=== PATIENT | female | born 1965 | race African-American/Black ===

== ENCOUNTER 2019-01-01 12:17 | Inpatient (IN) | payer OTHER ==
--- NOTE | 2019-01-01 13:05 | EKG REPORT ---
SEVERITY:- BORDERLINE ECG - SINUS RHYTHM LEFT AXIS DEVIATION BORDERLINE T ABNORMALITIES, ANTERIOR LEADS : Confirmed by: Guillermo Lorenzo MD 01-Jan-2019 13:04:53
[2019-01-01] MEDS ORDERED: ASPIRIN 81 MG TABLET, CHEWABLE PO ONE (13:43)
[2019-01-01] MEDS ORDERED: DIPHENHYDRAMINE HCL 50 MG/ML VIAL IV ONE (13:44)
[2019-01-01] MEDS ORDERED: METOCLOPRAMIDE HCL INJ/PF 10 MG/2 ML SDV IV ONE (13:44)
--- NOTE | 2019-01-01 13:46 | ER Document Report ---
ED Medical Screen (RME) - General Chief Complaint: Chest Pain Stated Complaint: CHEST PAIN Time Seen by Provider: 01/01/19 13:43 Mode of Arrival: Ambulatory Information source: Patient, [facility], [facility] Records Notes: 53-year-old female with coronary artery disease, hypertension, hyperlipidemia, IBS presents with complaint of chest pain and headache. Patient reports that she has had chronic chest pain for years but over the last 3 days it has changed and is now described as a pulling instead of a dull ache. Patient also describes a headache with associated nausea and lightheadedness. I have greeted and performed a rapid initial assessment of this patient. A comprehensive ED assessment and evaluation of the patient, analysis of test results and completion of medical decision making process we will be contacted by additional ED providers. PHYSICAL EXAMINATION: Vital signs reviewed-within normal limits GENERAL: Well-appearing, well-nourished and in no acute distress. LUNGS: No respiratory distress Musculoskeletal: Normal range of motion NEUROLOGICAL: Normal speech, normal gait. PSYCH: Normal mood, normal affect. SKIN: Warm, Dry, normal turgor, no rashes or lesions noted. TRAVEL OUTSIDE OF THE [place] IN LAST 30 DAYS: No - HPI Onset: Last week Onset/Duration: Gradual, Persistent, Worse Quality of pain: Achy, Throbbing, Other - Pulling Severity: Moderate Pain Level: 2 Associated Symptoms: Chest pain, Headache Exacerbated by: Denies Relieved by: Denies Similar symptoms previously: Yes Recently seen / treated by doctor: Yes - Related Data Smoking: Non-smoker Frequency of alcohol use: None Drug Abuse: None Allergies/Adverse Reactions: No Known Allergies Allergy (Verified 01/01/19 12:18) Past Medical History - Social History Frequency of alcohol use: Occasional Drug Abuse: None - Past Medical History Cardiac Medical History: Reports: Hx Heart Attack - 11/2015, Hx Hypercholesterolemia, Hx Hypertension Neurological Medical History: Reports: Hx Migraine Renal/ Medical History: Denies: Hx Peritoneal Dialysis Past Surgical History: Reports: Hx Abdominal Surgery - "gorwth" removed, Hx Cardiac Surgery - stent 11/2015 Physical Exam - Vital signs Vitals: Temp Pulse Resp BP Pulse Ox 98.8 F 73 16 113/67 98 01/01/19 12:34 01/01/19 12:34 01/01/19 12:34 01/01/19 12:34 02/20/19 12:34 Course - Vital Signs Vital signs: Temp Pulse Resp BP Pulse Ox 98.8 F 73 16 113/67 98 01/01/19 12:34 01/01/19 12:34 01/01/19 12:34 01/01/19 12:34 01/01/19 12:34
--- NOTE | 2019-01-01 14:30 | RADIOLOGY REPORT (SQ) ---
EXAM DESCRIPTION: CT HEAD WITHOUT COMPLETED DATE/TIME: 01/01/2019 2:22 pm REASON FOR STUDY: Worsening headache COMPARISON: None. TECHNIQUE: Axial images acquired through the brain without intravenous contrast. Images reviewed wi th bone, brain and subdural windows. Additional sagittal and coronal reconstructions were generated. Images stored on PACS. All CT scanners at this facility use dose modulation, iterative reconstruction, and/or weight based d osing when appropriate to reduce radiation dose to as low as reasonably achievable (ALARA). [facility]: Dose Right [facility]: CareDose [facility]: Dose Right [facility]: Teradose 4D [facility]: Active Circle RADIATION DOSE: CT Rad equipment meets quality standard of care and radiation dose reduction techniq ues were employed. CTDIvol: 53.2 mGy. DLP: 1017 mGy-cm. mGy. LIMITATIONS: None. FINDINGS: VENTRICLES: Normal size and contour. CEREBRUM: No masses. No hemorrhage. No midline shift. No evidence for acute infarction. Normal gra y/white matter differentiation. No areas of low density in the white matter. CEREBELLUM: No masses. No hemorrhage. No alteration of density. No evidence for acute infarction. EXTRAAXIAL SPACES: Large falcine calcification. No fluid collections. No masses. ORBITS AND GLOBE: No intra- or extraconal masses. Normal contour of globe without masses. CALVARIUM: No fracture. PARANASAL SINUSES: No fluid or mucosal thickening. SOFT TISSUES: No mass or hematoma. OTHER: No other significant finding. IMPRESSION: No acute abnormality in brain. EVIDENCE OF ACUTE STROKE: NO. COMMENT: Quality ID # [id number]: Final reports with documentation of one or more dose reduction techniques (e.g., Automated exposure control, adjustment of the mA and/or kV according to patient size, use of iterative reconstruction technique) TECHNICAL DOCUMENTATION: JOB ID: [id number] [employer]- All Rights Reserved Reading location - IP/workstation name: [email or web address]
--- NOTE | 2019-01-01 14:47 | RADIOLOGY REPORT (SQ) ---
EXAM DESCRIPTION: CHEST 2 VIEWS COMPLETED DATE/TIME: 01/01/2019 2:32 pm REASON FOR STUDY: Chest pain COMPARISON: None. EXAM PARAMETERS: NUMBER OF VIEWS: two views TECHNIQUE: Digital Frontal and Lateral radiographic views of the chest acquired. RADIATION DOSE: NA LIMITATIONS: none FINDINGS: LUNGS AND PLEURA: Near subsegmental atelectasis or scar in the left mid-lower lung zones. The right lung is clear. No pneumothorax or pleural effusion. MEDIASTINUM AND HILAR STRUCTURES: No masses or contour abnormalities. HEART AND VASCULAR STRUCTURES: Heart normal size. No evidence for failure. BONES: No acute findings. HARDWARE: None in the chest. OTHER: No other significant finding. IMPRESSION: 1. Linear subsegmental atelectasis or scar in the left mid-lower lung zones. No acute pulmonary consolidation. TECHNICAL DOCUMENTATION: JOB ID: [id number] [employer]- All Rights Reserved Reading location - IP/workstation name: [email or web address]
[2019-01-01 15:13] LABS: ABSOLUTE EOSINOPHILS # (AUTO) 0.2 10^3/uL (0.0-0.6); ABSOLUTE LYMPHOCYTES (AUTO) 3.5 10^3/uL (0.5-4.7); ABSOLUTE MONOCYTES (AUTO) 0.5 10^3/uL (0.1-1.4); BASOPHILS % (AUTO) 0.4 % (0-2); EOSINOPHILS % (AUTO) 2.5 % (0-6); HEMATOCRIT 39.8 % (36.0-47.0); HEMOGLOBIN 13.6 g/dL (12.0-15.5); LYMPHOCYTES % (AUTO) 48.7 % (13-45); MEAN CORPUSCULAR HGB CONC 34.3 g/dL (32.0-36.0); MEAN CORPUSCULAR VOLUME 91 fl (80-97); MONOCYTES % (AUTO) 7.2 % (3-13); PLATELET COUNT 329 10^3/uL (150-450); RED BLOOD COUNT 4.39 10^6/uL (3.72-5.28); RED CELL DISTRIBUTION WIDTH 14.2 % (11.5-14.0); SEGMENTED NEUTROPHILS % (AUTO) 41.2 % (42-78); TOTAL CELLS COUNTED % (AUTO) 100 %; WHITE BLOOD COUNT 7.3 10^3/uL (4.0-10.5)
[2019-01-01 15:55] LABS: ALANINE AMINOTRANSFERASE 32 U/L (9-52); ALKALINE PHOSPHATASE 142 U/L (38-126); ANION GAP 10 (5-19); ASPARTATE AMINO TRANSFERASE 33 U/L (14-36); BILIRUBIN,DIRECT 0.3 mg/dL (0.0-0.4); BILIRUBIN,TOTAL 0.3 mg/dL (0.2-1.3); BLOOD UREA NITROGEN 13 mg/dL (7-20); CALCIUM 9.2 mg/dL (8.4-10.2); CARBON DIOXIDE 28 mmol/L (22-30); CHLORIDE 103 mmol/L (98-107); CREATINE KINASE 97 U/L (30-135); GLUCOSE 90 mg/dL (75-110); POTASSIUM 4.3 mmol/L (3.6-5.0); SODIUM 141.1 mmol/L (137-145); TOTAL PROTEIN 7.2 g/dL (6.3-8.2)
--- NOTE | 2019-01-01 16:08 | ER Document Report ---
ED General - General Chief Complaint: Chest Pain Stated Complaint: CHEST PAIN Time Seen by Provider: 01/01/19 13:43 Primary Care Provider: DELORES,CUCA [Primary Care Provider] - Follow up as needed Mode of Arrival: Ambulatory Notes: 53-year-old female with coronary artery disease, AMI status post stent in 2016, hypertension, hyperlipidemia, IBS presents with complaint of chest pain and headache. Patient denies shortness of breath. Patient denies vomiting or abdominal pain. Patient denies any numbness or paresthesias in any of her extremities. Patient denies any unilateral weakness. She states she has felt disoriented over the last couple of days. Patient reports that she has had chr onic chest pain for years but over the last 3 days it has changed and is now described as a pulling instead of a dull ache. Patient also describes a headache with associated nausea and lightheadedness. TRAVEL OUTSIDE OF THE [place] IN LAST 30 DAYS: No - Related Data Allergies/Adverse Reactions: No Known Allergies Allergy (Verified 01/01/19 12:18) Past Medical History - General Information source: [facility], [facility] - Social History Smoking Status: Current Every Day Smoker Frequency of alcohol use: Occasional Drug Abuse: None Family History: Reviewed & Not Pertinent Patient has suicidal ideation: No Patient has homicidal ideation: No - Past Medical History Cardiac Medical History: Reports: Hx Heart Attack - 11/2015, Hx Hypercholesterolemia, Hx Hypertension Neurological Medical History: Reports: Hx Migraine Renal/ Medical History: Denies: Hx Peritoneal Dialysis Past Surgical History: Reports: Hx Abdominal Surgery - "gorwth" removed, Hx Cardiac Surgery - stent 11/2015 Review of Systems - Review of Systems Constitutional: See HPI EENT: No symptoms reported Cardiovascular: See HPI Respiratory: See HPI Gastrointestinal: See HPI Genitourinary: See HPI Female Genitourinary: No symptoms reported Musculoskeletal: No symptoms reported Skin: No symptoms reported Hematologic/Lymphatic: No symptoms reported Neurological/Psychological: See HPI Physical Exam - Vital signs Vitals: Temp Pulse Resp BP Pulse Ox 98.8 F 73 16 113/67 98 01/01/19 12:34 01/01/19 12:34 01/01/19 12:34 01/01/19 12:34 01/01/19 12:34 - Notes Notes: PHYSICAL EXAMINATION: Reviewed vital signs and charting by RN GENERAL: Alert, interacts well. No acute distress. HEAD: Normocephalic, atraumatic. EYES: Pupils equal, round, and reactive to light. Extraocular movements intact. ENT: Oral mucosa moist, tongue midline. NECK: Full range of motion. Supple. Trachea midline. LUNGS: Clear to auscultation bilaterally, no wheezes, rales, or rhonchi. No respiratory distress. HEART: Regular rate and rhythm. No murmur ABDOMEN: soft, non-tender. Non-distended. Bowel sounds present in all 4 quadrants. no McBurney's point tenderness, no Pimentel sign. EXTREMITIES: Moves all 4 extremities spontaneously. No edema, No cyanosis. NEUROLOGICAL: Alert and oriented. Normal speech. PSYCH: Normal affect, normal mood. SKIN: Warm, dry, normal turgor. No rashes or lesions noted. Course - Re-evaluation Re-evalutation: 01/01/19 18:55 Overall well-appearing 53-year-old female presents with chest pain. Cardiac workup was conducted and was negative. EKG was sinus rhythm with no STEMI or ST depressions of abnormalities. Negative troponin x2. No abnormal lab work. Heart score 4 for moderate suspicion, age, risk factors. I will call the hospitalist on-call, Dr. Longoria, to formally assess the patient for observation. 01/01/19 19:[address] Longoria he accepted the patient for telemetry observation with plan for stress test hopefully in the morning. - Vital Signs Vital signs: Temp Pulse Resp BP Pulse Ox 98.8 F 73 18 103/63 95 01/01/19 12:34 01/01/19 12:34 01/01/19 16:01 01/01/19 16:01 01/01/19 16:01 - Laboratory Result Diagrams: 01/01/19 15:00 01/01/19 15:00 Laboratory results interpreted by me: 01/01/19 01/01/19 15:00 15:00 RDW 14.2 H Seg Neutrophils % 41.2 L Lymphocytes % 48.7 H Alkaline Phosphatase 142 H Discharge - Discharge Clinical Impression: Chest pain Qualifiers: Chest pain type: unspecified Qualified Code(s): R07.9 - Chest pain, unspecified Headache Qualifiers: Headache type: unspecified Headache chronicity pattern: acute headache Condition: Good Disposition: ADMITTED OBSERVATION Admitting Provider: Hospitalist Unit Admitted: Telemetry [facility]errals: [facility] [[facility]] - Follow up as needed
[2019-01-01 16:15] LABS: CREATINE KINASE MB 0.36 ng/mL (<4.55)
[2019-01-01 16:20] LABS: TROPONIN I < 0.012 ng/mL
[2019-01-01] MEDS ORDERED: ACETAMINOPHEN 325 MG TABLET PO ONE (17:53)
[2019-01-01] MEDS ORDERED: IBUPROFEN 600 MG TABLET PO ONE (18:49)
[2019-01-01] MEDS ORDERED: ONDANSETRON 4 MG TAB.RAPDIS PO PRN (19:48)
[2019-01-01] MEDS ORDERED: MAG HYDROX/AL HYDROX/SIMETH SUSP 30 ML UDCUP PO PRN (19:48)
[2019-01-01] MEDS ORDERED: MAGNESIUM HYDROXIDE SUSP 30 ML UDCUP PO PRN (19:48)
[2019-01-01] MEDS ORDERED: MORPHINE SULFATE 10 MG/ML INJ IV PRN ×2 (19:59)
[2019-01-01] MEDS ORDERED: HYDRALAZINE HCL INJ/PF 20 MG/1 ML SDV IV PRN (19:59)
[2019-01-01] MEDS ORDERED: ALBUTEROL SULFATE 0.083% NEB 2.5 MG/3 ML AMPUL NEB PRN (19:59)
[2019-01-01] MEDS ORDERED: NICOTINE 21 MG/24 HR PATCH.TD24 TD PRN (19:59)
[2019-01-01] MEDS ORDERED: ACETAMINOPHEN 325 MG TABLET PO PRN (19:59)
[2019-01-01] MEDS ORDERED: NITROGLYCERIN 0.4 MG/TAB 25 TAB/BOTTLE SL PRN (19:59)
[2019-01-01 21:52] LABS: CREATINE KINASE MB 0.29 ng/mL (<4.55)
[2019-01-01 21:56] LABS: TROPONIN I < 0.012 ng/mL
[2019-01-01] MEDS: MORPHINE SULFATE 10 MG/ML INJ IV PRN (22:19)
[2019-01-01] MEDS: FAMOTIDINE 20 MG TABLET PO SCH (22:20)
--- NOTE | 2019-01-02 01:20 | PDOC H&P ---
History of Present Illness Admission Date/PCP: [facility] Patient complains of: Chest pain History of Present Illness: CLARISSA PARISI is a 53 year old female who presented to the emergency room with a 3- day history of a change in her chronic chest pain. Patient states that 3 days prior to her admission she developed a sudden onset of a "chest pain just like I had when I had a heart attack 3 years ago". The pain is described as a constant, continuous, unwavering, moderately severe deep seated, pulling or tearing sensation, occurring in the left upper chest without radiation. She also notes that for the last 2 days the chest pain has been accompanied by a rig ht frontotemporal headache which she describes as a constant, moderately severe, sharp pain also without radiation. She also notes that she had a similar headache only one time before and that was when she had her heart attack. She she admits that her headache and chest pain were accompanied by nausea, mild lightheadedness and mild confusion. She has been unable to identify any aggravating or ameliorating factors for her chest pain or headache. In the emergency room she was found to have negative cardiac enzymes and an EKG that showed no acute changes suggestive of myocardial ischemia or infarction. Because of her cardiac history she was admitted for further evaluation and treatment to include a cardiology consultation with Dr. Portillo. Past Medical History Cardiac Medical History: Reports: Coronary Artery Disease, Myocardial Infarction - 11/2015, Hyperlipidema, Hypertension, Other - Chronic chest pain Denies: Atrial Fibrillation, Congestive Heart Failure, DVT, Pulmonary Embolism Cardiac History Note: Chronic chest pain: A constant, continuous, unchanging, generalized, mildly to moderately intense, dull aching pain of the central and left anterior chest without radiation. Pulmonary Medical History: Denies: Asthma, Chronic Obstructive Pulmonary Disease (COPD) EENT Medical History: Reports: None Neurological Medical History: Denies: Hemorrhagic CVA, Ischemic CVA, Migraine, Seizures Endocrine Medical History: Reports: Obesity Denies: Diabetes Mellitus Type 1, Diabetes Mellitus Type 2, Hyperthyroidism, Hypothyroidism Renal/ Medical History: Denies: Chronic Kidney Disease, Nephrolithiasis Malignancy Medical History: Reports: None GI Medical History: Reports: Other - Irritable bowel syndrome Denies: Cirrhosis, Hepatitis Musculoskeltal Medical History: Denies: Arthritis, Gout Skin Medical History: Denies: Eczema, Psoriasis Psychiatric Medical History: Reports: Tobacco Dependency Denies: Alcohol Dependency, Substance Abuse Traumatic Medical History: Reports: None Hematology: Denies: Anemia, Bleeding Tendencies Infectious Medical History: Reports: None Past Surgical History Past Surgical History: Reports: Cardiac Catheterization - 11/2015, Coronary Stent - 11/2015 Social History Information Source: Patient Lives with: Alone Smoking Status: Current Every Day Smoker Frequency of Alcohol Use: Rare Hx Recreational Drug Use: No Drugs: None Hx Prescription Drug Abuse: No - Advance Directive Resuscitation Status: Full Code Surrogate healthcare decision maker:: Mother Family History Family History: CAD, Hypertension Parental Family History Reviewed: Yes Children Family History Reviewed: No Sibling(s) Family History Reviewed.: Yes Medication/Allergy Home Medications: Acetaminophen [Tylenol Extra Strength 500 mg Tablet] 1,000 mg PO Q6HP PRN 01/01/19 Amitriptyline HCl [Elavil 50 mg Tablet] 100 mg PO QHS 01/01/19 Aspirin [Ecotrin 81 mg EC Tablet] 81 mg PO DAILY 01/01/19 Atorvastatin Calcium [Lipitor 80 mg Tablet] 80 mg PO QHS 01/01/19 Cholecalciferol (Vitamin D3) [Vitamin D3 1000 Unit Tablet] 1,000 unit PO DAILY 01/01/19 Hydrochlorothiazide [Hydrodiuril 25 mg Tablet] 12.5 mg PO DAILY 01/01/19 Lisinopril [Prinivil 40 mg Tablet] 40 mg PO DAILY 01/01/19 Metoprolol Tartrate [Lopressor 100 mg Tablet] 100 mg PO Q12 01/01/19 Nitroglycerin [Nitrostat 0.4 mg (1/150 Gr) Tabs 25/Bottle] 0.4 mg SL Q5MP PRN 01/01/19 Ranitidine HCl [Zantac 150 mg Tablet] 150 mg PO BID 01/01/19 Sertraline HCl [Zoloft 50 mg Tablet] 75 mg PO DAILY 01/01/19 Allergies/Adverse Reactions: No Known Allergies Allergy (Verified 01/01/19 12:18) Review of Systems Constitutional: PRESENT: as per HPI, headache(s). ABSENT: chills, fever(s), weakness Eyes: ABSENT: visual disturbances, other - Eye pain Ears: ABSENT: hearing changes, other - Ear pain Nose, Mouth, and Throat: ABSENT: mouth pain, sore throat Cardiovascular: PRESENT: as per HPI, chest pain. ABSENT: dyspnea on exertion, edema, orthropnea, palpitations Respiratory: ABSENT: cough, dyspnea Gastrointestinal: PRESENT: as per HPI, nausea. ABSENT: abdominal pain, constipation, diarrhea, vomiting Genitourinary: ABSENT: dysuria, hematuria Musculoskeletal: ABSENT: deformity, joint swelling Integumentary: ABSENT: pruritus, rash Neurological: PRESENT: as per HPI, confusion - Mild disorientation, other - Lightheadedness. ABSENT: convulsions, memory loss Psychiatric: ABSENT: anxiety, depression Endocrine: ABSENT: cold intolerance, heat intolerance Hematologic/Lymphatic: ABSENT: easy bleeding, easy bruising Physical Exam Vital Signs: Temp Pulse Resp BP Pulse Ox 98.8 F 73 18 103/63 95 01/01/19 12:34 01/01/19 12:34 01/01/19 16:01 01/01/19 16:01 01/01/19 16:01 Intake & Output 12/30/18 12/31/18 01/01/19 23:59 23:59 23:59 Weight 92.7 kg General appearance: PRESENT: no acute distress, cooperative, morbidly obese Head exam: PRESENT: atraumatic, normocephalic Eye exam: PRESENT: conjunctiva pink, EOMI. ABSENT: scleral icterus Ear exam: PRESENT: normal external ear exam. ABSENT: bleeding, drainage Mouth exam: PRESENT: dry mucosa, neck supple Neck exam: ABSENT: thyromegaly, tracheal deviation Respiratory exam: PRESENT: clear to auscultation wyatt, symmetrical, unlabored Cardiovascular exam: PRESENT: RRR. ABSENT: clicks, gallop, rubs Pulses: PRESENT: normal radial pulses, normal dorsalis pedis pul Vascular exam: PRESENT: normal capillary refill. ABSENT: pallor GI/Abdominal exam: PRESENT: normal bowel sounds, soft Rectal exam: PRESENT: deferred Extremities exam: ABSENT: joint swelling, pedal edema Musculoskeletal exam: ABSENT: deformity, dislocation Neurological exam: PRESENT: alert, oriented to person, oriented to place, oriented to time, oriented to situation, CN II-XII grossly intact. ABSENT: motor sensory deficit Psychiatric exam: PRESENT: appropriate affect, normal mood Skin exam: PRESENT: dry, intact, warm. ABSENT: jaundice, rash, urticaria Results Laboratory Results: 01/01/19 15:00 01/01/19 15:00 01/01/19 01/01/19 15:00 15:00 WBC 7.3 RBC 4.39 Hgb 13.6 Hct 39.8 MCV 91 MCH 31.0 MCHC 34.3 RDW 14.2 H Plt Count 329 Seg Neutrophils % 41.2 L Lymphocytes % 48.7 H Monocytes % 7.2 Eosinophils % 2.5 Basophils % 0.4 Absolute Neutrophils 3.0 Absolute Lymphocytes 3.5 Absolute Monocytes 0.5 Absolute Eosinophils 0.2 Absolute Basophils 0.0 Sodium 141.1 Potassium 4.3 Chloride 103 Carbon Dioxide 28 Anion Gap 10 BUN 13 Creatinine 0.97 Est GFR ( Amer) > 60 Est GFR (Non-Af Amer) > 60 Glucose 90 Calcium 9.2 Total Bilirubin 0.3 AST 33 ALT 32 Alkaline Phosphatase 142 H Total Protein 7.2 Albumin 4.0 01/01/19 01/01/19 01/01/19 15:00 15:00 18:03 Creatine Kinase 97 CK-MB (CK-2) 0.36 Troponin I < 0.012 < 0.012 Impressions: Chest X-Ray 01/01/19 13:43 IMPRESSION: 1. Linear subsegmental atelectasis or scar in the left mid-lower lung zones. No acute pulmonary consolidation. Head CT 01/01/19 13:46 IMPRESSION: No acute abnormality in brain. EVIDENCE OF ACUTE STROKE: NO. Assessment & Plan - Diagnosis (1) CAD (coronary artery disease), [place] coronary artery Qualifiers: [place] vs. transplanted heart: [place] heart Associated angina: angina presence unspecified Qualified Code(s): I25.10 - Atherosclerotic heart disease of [place] coronary artery without angina pectoris Is this a current diagnosis for this admission?: Yes Plan: Patient will be evaluated utilizing serial cardiac enzymes and EKG evaluations as well as obtaining a cardiac consultation with Dr. Portillo. She will be continued on her current cardiac medications and her acute chest pain will be treated with morphine 2-4 mg IV every 2 hours as needed for chest pain. (2) HTN (hypertension) Qualifiers: Hypertension type: essential hypertension Qualified Code(s): I10 - Essential (primary) hypertension Is this a current diagnosis for this admission?: Yes Plan: Patient will be continued on her current medications for hypertension and her vital signs will be monitored closely. (3) HLD (hyperlipidemia) Qualifiers: Hyperlipidemia type: unspecified Qualified Code(s): E78.5 - Hyperlipidemia, unspecified Is this a current diagnosis for this admission?: Yes Plan: Patient will be continued on her current statin therapy and a lipid profile will be obtained to evaluate the efficacy of therapy. (4) Chronic chest pain Is this a current diagnosis for this admission?: Yes Plan: Patient's chronic chest pain will be treated on an ongoing basis as recommended by Dr. Portillo. (5) Obesity (BMI 30-39.9) Is this a current diagnosis for this admission?: Yes Plan: Patient will be evaluated by the dietitian and dietary recommendations for lifestyle changes to enhance her health and life going forward will be made. (6) Tobacco use disorder, severe, dependence Is this a current diagnosis for this admission?: Yes Plan: Advised patient smoking should be discontinued and counseling for smoking cessation was provided briefly. A nicotine patch will be available for her use. - Time Time Spent: 30 to 50 Minutes Critical Time spent with patient: Less than 15 minutes Smoking Cessation Education: 3 to 10 minutes Medications reviewed and adjusted accordingly: Yes Anticipated discharge: Home Within: within 48 hours - Inpatient Certification Based on my medical assessment, after consideration of the patient's comorbidities, presenting symptoms, or acuity I expect that the services needed warrant INPATIENT care.: No I certify that my determination is in accordance with my understanding of Medicare's requirements for reasonable and necessary INPATIENT services [42 CFR 412.3e].: No Medical Necessity: Significant Comorbidiites Make Outpatient Treatment Too Risky, Need Close Monitoring Due to Risk of Patient Decompensation, Need For Continuous Telemetry Monitoring, Risk of Complication if Not Cared For in Hospital
[2019-01-02 03:11] LABS: HEMATOCRIT 36.1 % (36.0-47.0); HEMOGLOBIN 12.4 g/dL (12.0-15.5); MEAN CORPUSCULAR HGB CONC 34.3 g/dL (32.0-36.0); MEAN CORPUSCULAR VOLUME 90 fl (80-97); PLATELET COUNT 286 10^3/uL (150-450); RED CELL DISTRIBUTION WIDTH 14.6 % (11.5-14.0); WHITE BLOOD COUNT 7.1 10^3/uL (4.0-10.5)
[2019-01-02 03:35] LABS: ANION GAP 8 (5-19); BLOOD UREA NITROGEN 18 mg/dL (7-20); CARBON DIOXIDE 27 mmol/L (22-30); CHLORIDE 105 mmol/L (98-107); CHOLESTEROL 105.25 mg/dL (0-200); GLUCOSE 113 mg/dL (75-110); POTASSIUM 3.8 mmol/L (3.6-5.0); SODIUM 139.9 mmol/L (137-145); TRIGLYCERIDES 86 mg/dL (<150)
[2019-01-02 03:45] LABS: CREATINE KINASE MB 0.29 ng/mL (<4.55); DIRECT LDL 72 mg/dL (<100)
[2019-01-02] MEDS: MORPHINE SULFATE 10 MG/ML INJ IV PRN ×5 (03:45→23:52)
[2019-01-02 03:49] LABS: TROPONIN I < 0.012 ng/mL
[2019-01-02 03:50] LABS: FREE T3 3.64 pg/mL (2.77-5.27); FREE T4 (FREE THYROXINE) 1.3 ng/dL (0.78-2.19)
[2019-01-02 04:04] LABS: THYROID STIMULATING HORMONE 4.2 uIU/mL (0.47-4.68)
--- NOTE | 2019-01-02 07:42 | EKG REPORT ---
SEVERITY:- ABNORMAL ECG - SINUS RHYTHM LAD, CONSIDER LEFT ANTERIOR FASCICULAR BLOCK : Confirmed by: Guillermo Lorenzo MD 02-Jan-2019 07:41:15
[2019-01-02] MEDS: FAMOTIDINE 20 MG TABLET PO SCH ×2 (09:44→21:49)
[2019-01-02] MEDS: DOCUSATE SODIUM 100 MG CAPSULE PO SCH ×2 (09:45→17:23)
[2019-01-02] MEDS: ASPIRIN 81 MG TABLET, ENT COATED PO SCH (09:45)
[2019-01-02] MEDS: SERTRALINE HCL 50 MG TABLET PO SCH (09:45)
[2019-01-02] MEDS ORDERED: NITROGLYCERIN 0.4 MG/TAB 25 TAB/BOTTLE SL PRN (09:47)
[2019-01-02] MEDS: CHOLECALCIFEROL (D3) 1,000 UNIT TABLET PO SCH (09:48)
[2019-01-02] MEDS ORDERED: NORMAL SALINE 1000 ML 1,000 ML IV PRN (09:49)
--- NOTE | 2019-01-02 09:58 | PDOC PROGRESS REPORT ---
Subjective Progress Note for:: 01/02/19 Subjective:: 53 year old female who presented to the emergency room with a 3-day history of a change in her chronic chest pain. Patient states that 3 days prior to her admission she developed a sudden onset of a "chest pain just like I had when I had a heart attack 3 years ago". The pain is described as a constant, continuous, unwavering, moderately severe deep seated, pulling or tearing sensation, occurring in the left upper chest without radiation. She also notes that for the last 2 days the chest pain has been accompanied by a right frontotemporal headache which she describes as a constant, moderately severe, sharp pain also without radiation. She also notes that she had a similar headache only one time before and that was when she had her heart attack. She she admits that her headache and chest pain were accompanied by nausea, mild lightheadedness and mild confusion. She has been unable to identify any aggravating or ameliorating factors for her chest pain or headache. In the emergency room she was found to have negative cardiac enzymes and an EKG that showed no acute changes suggestive of myocardial ischemia or infarction. Because of her cardiac history she was admitted for further evaluation and treatment to include a cardiology consultation with Dr. Portillo. [id number]-old female with coronary artery disease status post stent placement in [facility] in 2015 came in with chest pains. Still complaining of chest pains EKG was sinus rhythm and troponins are negative so far. Cardiology consult was requested. No acute events in the last 24 hours. Patient is afebrile. Blood pressure is 99/52 be going to hold her morning medications this morning. And to start on IV fluids normal saline at 50 cc/h. Reason For Visit: CHEST PAIN Physical Exam Vital Signs: Temp Pulse Resp BP Pulse Ox 97.4 F 71 17 101/52 L 96 01/02/19 03:00 01/02/19 07:00 01/02/19 03:00 01/02/19 03:00 01/02/19 03:00 Intake & Output 01/01/19 01/02/19 01/03/19 06:59 06:59 06:59 Weight 94.2 kg General appearance: PRESENT: no acute distress Head exam: PRESENT: atraumatic Eye exam: PRESENT: PERRLA Mouth exam: PRESENT: moist, tongue midline Neck exam: ABSENT: carotid bruit, JVD, lymphadenopathy, thyromegaly Respiratory exam: PRESENT: clear to auscultation wyatt. ABSENT: rales, rhonchi, wheezes Cardiovascular exam: PRESENT: RRR. ABSENT: diastolic murmur, rubs, systolic murmur GI/Abdominal exam: PRESENT: normal bowel sounds, soft. ABSENT: distended, guarding, mass, organolmegaly, rebound, tenderness Neurological exam: PRESENT: alert, awake, oriented to person, oriented to place, oriented to time, oriented to situation, CN II-XII grossly intact. ABSENT: motor sensory deficit Psychiatric exam: PRESENT: appropriate affect, normal mood. ABSENT: homicidal ideation, suicidal ideation Results Laboratory Results: 01/02/19 03:03 01/02/19 03:03 01/01/19 01/01/19 01/02/19 15:00 15:00 03:03 WBC 7.3 7.1 RBC 4.39 4.00 Hgb 13.6 12.4 Hct 39.8 36.1 MCV 91 90 MCH 31.0 31.0 MCHC 34.3 34.3 RDW 14.2 H 14.6 H Plt Count 329 286 Seg Neutrophils % 41.2 L Lymphocytes % 48.7 H Monocytes % 7.2 Eosinophils % 2.5 Basophils % 0.4 Absolute Neutrophils 3.0 Absolute Lymphocytes 3.5 Absolute Monocytes 0.5 Absolute Eosinophils 0.2 Absolute Basophils 0.0 Sodium 141.1 Potassium 4.3 Chloride 103 Carbon Dioxide 28 Anion Gap 10 BUN 13 Creatinine 0.97 Est GFR ( Amer) > 60 Est GFR (Non-Af Amer) > 60 Glucose 90 Calcium 9.2 Magnesium Total Bilirubin 0.3 AST 33 ALT 32 Alkaline Phosphatase 142 H Total Protein 7.2 Albumin 4.0 Triglycerides Cholesterol LDL Cholesterol Direct VLDL Cholesterol HDL Cholesterol TSH Free T4 Free T3 pg/mL 01/02/19 01/02/19 03:03 03:03 WBC RBC Hgb Hct MCV MCH MCHC RDW Plt Count Seg Neutrophils % Lymphocytes % Monocytes % Eosinophils % Basophils % Absolute Neutrophils Absolute Lymphocytes Absolute Monocytes Absolute Eosinophils Absolute Basophils Sodium 139.9 Potassium 3.8 Chloride 105 Carbon Dioxide 27 Anion Gap 8 BUN 18 Creatinine 1.57 H Est GFR ( Amer) 42 L Est GFR (Non-Af Amer) 34 L Glucose 113 H Calcium 9.0 Magnesium 2.5 H Total Bilirubin AST ALT Alkaline Phosphatase Total Protein Albumin Triglycerides 86 Cholesterol 105.25 LDL Cholesterol Direct 72 VLDL Cholesterol 17.0 HDL Cholesterol 29 L TSH 4.20 Free T4 1.30 Free T3 pg/mL 3.64 01/01/19 01/01/19 01/01/19 15:00 15:00 18:03 Creatine Kinase 97 CK-MB (CK-2) 0.36 Troponin I < 0.012 < 0.012 01/01/19 01/01/19 01/02/19 21:00 21:00 03:03 Creatine Kinase 82 78 CK-MB (CK-2) 0.29 Troponin I < 0.012 01/02/19 03:03 Creatine Kinase CK-MB (CK-2) 0.29 Troponin I < 0.012 Impressions: Chest X-Ray 01/01/19 13:43 IMPRESSION: 1. Linear subsegmental atelectasis or scar in the left mid-lower lung zones. No acute pulmonary consolidation. Head CT 01/01/19 13:46 IMPRESSION: No acute abnormality in brain. EVIDENCE OF ACUTE STROKE: NO. Assessment & Plan - Diagnosis (1) CAD (coronary artery disease), [place] coronary artery Qualifiers: [place] vs. transplanted heart: [place] heart Associated angina: angina presence unspecified Qualified Code(s): I25.10 - Atherosclerotic heart disease of [place] coronary artery without angina pectoris Is this a current diagnosis for this admission?: Yes Plan: Patient will be evaluated utilizing serial cardiac enzymes and EKG evaluations as well as obtaining a cardiac consultation with Dr. Portillo. She will be continued on her current cardiac medications and her acute chest pain will be treated with morphine 2-4 mg IV every 2 hours as needed for chest pain. 01/02/2019-patient came in with chest pain she had a history of coronary artery disease status post stent placement in 2016. Cardiac enzymes are negative EKG was negative cardiology consultation was done with Dr. Portillo. Recent is on IV morphine every 2 hours as needed for chest pains. Plan is to continue the present management. (2) HTN (hypertension) Qualifiers: Hypertension type: essential hypertension Qualified Code(s): I10 - Essential (primary) hypertension Is this a current diagnosis for this admission?: Yes Plan: Patient blood pressure just now is 99/52. We are going to check a manual blood pressure. Plan to hold her blood pressure medications. Creatinine is also jumped from 0.97-1.57 started on IV fluids normal saline 50 cc/h. (3) HLD (hyperlipidemia) Qualifiers: Hyperlipidemia type: unspecified Qualified Code(s): E78.5 - Hyperlipidemia, unspecified Is this a current diagnosis for this admission?: Yes Plan: 01/02/2019-patient has history of hyperlipidemia, presently on atorvastatin 80 mg p.o. nightly. Patient's total cholesterol is 105 and LDL is 72. (4) Obesity (BMI 30-39.9) Is this a current diagnosis for this admission?: Yes Plan: 01/02/2019-diet exercise weight loss and lifestyle modifications are discussed with the patient. (5) Acute kidney failure Is this a current diagnosis for this admission?: Yes Plan: 01/02/2019-patient's admission creatinine is 0.97 and today it is 1.57 acute kidney injury most likely prerenal. Started on normal saline at 50 cc/h plan to recheck her labs tomorrow. - Time Time Spent with patient: 15-24 minutes Smoking Cessation Education: over 10 minutes Medications reviewed and adjusted accordingly: Yes Anticipated discharge: Home
[2019-01-02] MEDS ORDERED: HYDROCHLOROTHIAZIDE 25 MG TABLET PO SCH (10:00)
[2019-01-02] MEDS ORDERED: LISINOPRIL 10 MG TABLET PO SCH (10:00)
[2019-01-02] MEDS ORDERED: METOPROLOL TARTRATE 100 MG TABLET PO SCH (10:00)
[2019-01-02 10:17] LABS: CREATINE KINASE MB 0.26 ng/mL (<4.55)
[2019-01-02 10:22] LABS: TROPONIN I < 0.012 ng/mL
--- NOTE | 2019-01-02 14:29 | RADIOLOGY REPORT (SQ) ---
EXAM DESCRIPTION: BARIUM SWALLOW ESOPHAGUS COMPLETED DATE/TIME: 01/02/2019 1:27 pm REASON FOR STUDY: CHEST PAIN / GERD COMPARISON: None. TECHNIQUE: Under fluoroscopic guidance, patient ingested effervescent granules followed by thick and thin barium. Fluoroscopic spot images and routine radiographic images acquired and stored on PACS. 12 MM BARIUM TABLET GIVEN: Yes. No significant delay in passage. LIMITATIONS: None. FLUOROSCOPY TIME: FLUORO TIME: 1 minutes 43 seconds 14 series of digital images saved to PACS. FINDINGS: NEUROMUSCULAR COORDINATION OF SWALLOW: Normal. No aspiration. ESOPHAGEAL MOTILITY: Normal peristalsis. No esophageal spasm. Occasional tertiary contractions of the esophagus. ESOPHAGEAL MUCOSA: Normal mucosa without masses or ulceration. GASTRO-ESOPHAGEAL JUNCTION: Small hiatal hernia with minimal reflux. NON-GI TRACT STRUCTURES: No significant finding. OTHER: No other significant finding. IMPRESSION: Small hiatal hernia. Minimal gastroesophageal reflux. Tertiary contractions of the eso phagus. COMMENT: Quality ID [id number]: Final reports for procedures using fluoroscopy that document radiation exp osure indices, or exposure time and number of fluorographic images (if radiation exposure indices are not available) TECHNICAL DOCUMENTATION: JOB ID: [id number] [employer]- All Rights Reserved Reading location - IP/workstation name: [email or web address]
[2019-01-02] MEDS: FONDAPARINUX SODIUM INJ 2.5 MG/0.5 ML DISP.SYRIN SUBCUT SCH (14:48)
[2019-01-02 16:26] LABS: CREATINE KINASE MB 0.28 ng/mL (<4.55)
[2019-01-02 16:35] LABS: TROPONIN I < 0.012 ng/mL
[2019-01-02] MEDS ORDERED: AMLODIPINE BESYLATE 10 MG TABLET PO SCH (18:00)
[2019-01-02] MEDS: ONDANSETRON HCL INJ/PF 4 MG/2 ML SDV IV PRN ×2 (18:28→23:52)
[2019-01-02] MEDS ORDERED: AMLODIPINE BESYLATE 2.5 MG TABLET PO SCH (20:00)
[2019-01-02] MEDS ORDERED: AMITRIPTYLINE HCL 50 MG TABLET PO SCH (22:00)
[2019-01-02] MEDS ORDERED: ATORVASTATIN CALCIUM 80 MG TABLET PO SCH (22:00)
--- NOTE | 2019-01-02 22:52 | PDOC CONSULTATION ---
Consultation-Blank Consultation: CARDIOLOGY CONSULTATION by Dr. Karen Kebede on 01/02/2019. Patient seen at 1 PM on 01/02/2019. REASON FOR CONSULTATION: Patient with history of coronary artery disease, history of prior myocardial infarction, and history of stent placement, with chest pain. HISTORY of PRESENT ILLNESS. Patient is a 53-year-old Afro-Australian female with known history of hypertension, hyperlipidemia, coronary artery disease and history of stent placement who states that about 3 days prior to admission had sudden onset of a pulling sensation of chest pain in the center of the chest. Without radiation. This was constant, and was unrelieved with any maneuvers. She states she did not take nitroglycerin. She states that this sensation of pulling in the chest is different from her GERD symptoms. She denies any increase or the symptoms being precipitated by exertion. There is no associated nausea vomiting, or diaphoresis, or palpitations or shortness of breath. So far her troponin I have been negative. The patient denies any PND orthopnea. There is no near syncope or syncope. PAST MEDICAL HISTORY: As per her records from [facility] she had a non-ST elevation CO in November 2015. She had a mid right coronary artery lesion which was stented with a drug-eluting stent then. Subsequently she has been having chronic chest pains which are very atypical. She had an admission last year in 1 of the hospitals there, and CO was ruled out. She also has chronic abdominal pain. She states that she had a gastrectomy due to a growth about many years ago. She denies history of diabetes mellitus. She has a history of hypertension. She also has hyperlipidemia. There is no history of asthma or COPD. There is no history of sleep apnea. There is no history of chronic kidney disease. There is no history of TIA CVA symptoms. The patient denies any clinical history of depression or anxiety, but the patient does appear to be depressed. On review of her records from [facility], the patient has a history of noncardiac chest pain chronically, and also chronic abdominal pain. She also has a history of GERD. PAST SURGICAL HISTORY: Is gastrectomy, cardiac catheterization and stent placement in the right coronary artery in 2015 AFTER AN CO. Social HISTORY: Patient does smoke. There is no history of EtOH abuse. FAMILY HISTORY: Is positive for coronary artery disease and hypertension. ALLERGIES: The patient has no known allergies. DISPOSITION: The patient's is a full code. She states her sister and her mother are her surrogate healthcare decision makers. REVIEW OF SYSTEMS: CONSTITUTIONAL: Denies any fever chills or rigors. Complains of generalized fatigue and malaise. HEAD: Complains of headaches. History of headaches off and on. But no definite diagnosis of migraines. No history of head injury. EYES: No history of amblyopia diplopia. No history of amaurosis fugax. EARS: No history of hearing loss. No tinnitus. No vertigo. NOSE: No history of hayfever. No history of nosebleeds. No history of nasal polyposis. MOUTH: No history of altered taste sensation. No ulcers in the mouth. No bleeding from the gums. THROAT: No history of odynophagia or dysphagia. No recurrent sore throats. SKIN: No pruritus. No yellowish discoloration of the skin. No history of psoriasis. NECK: No denies neck pain. No swelling in the neck. LUNGS: No history of asthma or COPD. No wheezing. No history of pulmonary embolism. Denies history of sleep apnea. No history of hemoptysis. No history of pleuritic chest pain. No symptoms of bronchitis. No symptoms of upper or lower respiratory tract infections. HEART: History of coronary artery disease. History of non-ST elevation CO in November 2015. At that time the patient had a drug-eluting stent in the right coronary artery. She has a history of hypertension. History of chronic atypical noncardiac chest pains. History of hypertension present. History of hyperlipidemia present. No history of congestive heart failure. No history of palpitations or arrhythmia no history of PND orthopnea leg edema. RENAL: No history of chronic kidney disease. No symptoms of UTI. No history of hematuria pyuria or dysuria. ENDOCRINE: No history of thyroid disease. No history of diabetes mellitus. No history of hirsutism. No history of heat or cold intolerance. No history of polydipsia polyuria. MUSCULOSKELETAL: Denies arthritis or collagen vascular disease. [employer]: No history of TIA CVA symptoms. No history of migraines. History of headaches present. No history of seizures. PSYCHIATRIC: No history of anxiety. The patient does appear to be depressed although she does not carry a diagnosis of depression. No suicidal ideation. No history of homicidal ideation. VASCULAR: No history of calf or buttock claudication no history of DVT. HEMATOLOGICAL: No history of bleeding diathesis. No history of clotting disorders. GI: History of GERD present. History of gastrectomy for a growth in the past. No history of GI bleed. No history of jaundice. No history of fatty food intolerance. No history of altered bowel movements. History of chronic abdominal pain off and on. PHYSICAL EXAMINATION: The patient is morbidly obese. At present in no acute distress in spite of complaints of chest pain. She appears to be lying comfortably in bed. She is well-groomed. Selected Entries 01/02/19 12:41 Temperature 97.3 F Temperature Oral Source Pulse Rate 82 Respiratory 16 Rate Blood Pressure 115/78 Blood Pressure 90 Mean BP Location Left Arm BP Position Supine O2 Sat by Pulse 98 Oximetry Oxygen Delivery Room Air Method HEAD: Is atraumatic normocephalic. EYES: Pupils are equal round regular react to light and accommodation, extraocular movements are normal. There is no conjunctival pallor. There is no scleral icterus. EARS: Tympanic membranes are intact. External auditory canals are clear. NOSE: There is no inflammation of the nasal mucous membranes. There is no deviated nasal septum. MOUTH: Mucous membranes of mouth are moist. Tongue is moist. There is no ulcers. There is no bleeding from the gums. The patient has a class IV Mallampati score. THROAT: There is no redness of the oropharynx. There is no exudates. SKIN: There is no skin rashes or skin lesions. There is no petechia or ecchymosis. NECK: Is supple, there is no JVD. Carotids are equal. There is no carotid bruits. There is no lymphadenopathy. There is no goiter. There is no accessory muscle respiration use. Trachea central. LUNGS: Clear to auscultation percussion without any rhonchi rales or wheezing. On palpation there is no chest wall tenderness. HEART: S1-S2 is heard. There is no S3 gallop. There is no S4 gallop. There is systolic murmur left sternal border and the apex. There is no rub. ABDOMEN: Is obese. Nontender. There is no hepatosplenic megaly. Bowel sounds are well heard. There is no tender areas masses. EXTREMITIES: Femorals are deep. Femorals are diminished. Leg pulses are well felt. There is no pedal edema. There is no DVT or cellulitis. There is no calf tenderness. There is no petechia or ecchymosis. There is no DVT or cellulitis. There is no cyanosis or clubbing. Capillary refill is normal. [employer]: The patient is conscious awake alert oriented x3 with no focal deficits. PSYCHIATRIC although the patient judgment and insight are intact, she is of slow mentation, and her affect is slightly flat. She does appear to be slightly depressed. Current Medications Generic Name Dose Route Start Last Admin Trade Name Freq PRN Reason Stop Dose Admin Acetaminophen 650 mg 01/01/19 19:59 01/02/19 21:42 Tylenol 325 Mg Tablet PO 01/31/19 19:58 650 mg Q4HP PRN Administration For headache, pain or fever Al Hydrox/Mg Hydrox/Simethicone 30 ml 01/01/19 19:48 01/02/19 03:45 Maalox Plus Susp 30 Udcup PO 01/31/19 19:47 30 ml Q6HP PRN Administration HEARTBURN Albuterol 2.5 mg 01/01/19 19:59 Ventolin 0.083% Neb 2.5 Mg/3 Ml Ampul NEB 01/31/19 19:58 RTQ1HP PRN SHORTNESS OF BREATH Amitriptyline HCl 100 mg 01/02/19 22:00 01/02/19 21:42 Elavil 50 Mg Tablet PO 02/01/19 21:59 100 mg QHS JUAQUIN Administration Amlodipine Besylate 2.5 mg 01/02/19 20:00 01/02/19 21:41 Norvasc 2.5 Mg Tablet PO 02/01/19 19:59 2.5 mg DAILY JUAQUIN Administration Aspirin 81 mg 01/02/19 10:00 01/02/19 09:45 Ecotrin 81 Mg Ec Tablet PO 02/01/19 09:59 81 mg DAILY JUAQUIN Administration Atorvastatin Calcium 80 mg 01/02/19 22:00 01/02/19 21:42 Lipitor 80 Mg Tablet PO 02/01/19 21:59 80 mg QHS JUAQUIN Administration Cholecalciferol 1,000 unit 01/02/19 10:00 01/02/19 09:48 Vitamin D3 1000 Unit Tablet PO 02/01/19 09:59 1,000 unit DAILY JUAQUIN Administration Docusate Sodium 100 mg 01/02/19 10:00 01/02/19 17:23 Colace 100 Mg Capsule PO 02/01/19 09:59 Not Given BID [facility] Famotidine 20 mg 01/01/19 22:00 01/02/19 21:49 Pepcid 20 Mg Tablet PO 01/31/19 21:59 Not Given Q12 JUAQUIN Fondaparinux 2.5 mg 01/02/19 08:00 01/02/19 14:48 Arixtra Inj 2.5 Mg/0.5 Ml Disp.Syrin SUBCUT 02/01/19 07:59 2.5 mg QAM JUAQUIN Administration Hydrochlorothiazide 12.5 mg 01/02/19 10:00 01/02/19 09:48 Hydrodiuril 25 Mg Tablet PO 02/01/19 09:59 Not Given DAILY [facility] Sodium Chloride 1,000 mls @ 50 mls/hr 01/02/19 09:49 Nacl 0.9% 1000 Ml Iv Soln IV 02/01/19 09:48 CONTINUOUS PRN THIS MED IS NOT "PRN" Magnesium Hydroxide 30 ml 01/01/19 19:48 Milk Of Magnesia 30 Ml Udcup PO 01/31/19 19:47 HSP PRN FOR CONSTIPATION Morphine Sulfate 2 mg 01/01/19 19:59 01/02/19 18:27 Morphine 10 Mg/Ml Inj IV 01/08/19 19:58 2 mg Q2HP PRN Administration FOR PAIN SCALE 1-2 Morphine Sulfate 3 mg 01/01/19 19:59 Morphine 10 Mg/Ml Inj IV 01/08/19 19:58 Q2HP PRN FOR PAIN SCALE 3-4 Morphine Sulfate 4 mg 01/01/19 19:59 Morphine 10 Mg/Ml Inj IV 01/08/19 19:58 Q2HP PRN PAIN SCALE OF 5 Nicotine 1 each 01/01/19 19:59 Nicoderm 21 Mg/24 Hr Transderm Patch TD 01/31/19 19:58 DAILYP PRN WITHDRAWAL SYMPTOMS Nitroglycerin 1 tab 01/01/19 19:59 Nitrostat 0.4 Mg (1/150 Gr) Tabs 25/Bottle SL 01/31/19 19:58 Q5MP PRN FOR CHEST PAIN Ondansetron HCl 4 mg 01/01/19 19:48 01/02/19 18:28 Zofran Inj/Pf 4 Mg/2 Ml Sdv IV 01/31/19 19:47 4 mg Q4HP PRN Administration FOR NAUSEA/VOMITING Ondansetron HCl 4 mg 01/01/19 19:48 Zofran Odt 4 Mg Tablet PO 01/31/19 19:47 Q4HP PRN FOR NAUSEA/VOMITING Sertraline HCl 75 mg 01/02/19 10:00 01/02/19 09:45 Zoloft 50 Mg Tablet PO 02/01/19 09:59 75 mg DAILY JUAQUIN Administration Sodium Chloride 2.5 ml 01/01/19 22:00 01/02/19 21:44 Saline Flush 2.5 Ml Monoject Prefil Syrin IV 01/31/19 21:59 2.5 ml Q8 JUAQUIN Administration Discontinued Medications Generic Name Dose Route Start Last Admin Trade Name Freq PRN Reason Stop Dose Admin Acetaminophen 975 mg 01/01/19 17:53 01/01/19 17:59 Tylenol 325 Mg Tablet PO 01/01/19 17:54 975 mg NOW ONE Administration Aspirin 324 mg 01/01/19 13:43 01/01/19 14:12 Aspirin 81 Mg Chewable Tablet PO 01/01/19 13:44 324 mg NOW ONE Administration Diphenhydramine HCl 12.5 mg 01/01/19 13:44 01/01/19 15:08 Benadryl Inj 50 Mg/1 Ml Vial IV 01/01/19 13:45 12.5 mg NOW ONE Administration Hydralazine HCl 20 mg 01/01/19 19:59 Apresoline Inj/Pf 20 Mg/1 Ml Sdv IV 01/31/19 19:58 Q4HP PRN Give For Sbp > 160 / Dbp > 100 Ibuprofen 400 mg 01/01/19 18:49 01/01/19 19:05 Motrin 600 Mg Tablet PO 01/01/19 18:50 400 mg NOW ONE Administration Lisinopril 40 mg 01/02/19 10:00 01/02/19 09:48 Prinivil 10 Mg Tablet PO 02/01/19 09:59 Not Given DAILY JUAQUIN Metoclopramide HCl 10 mg 01/01/19 13:44 01/01/19 15:08 Reglan Inj/Pf 10 Mg/2 Ml Sdv IV 01/01/19 13:45 10 mg NOW ONE Administration Metoprolol Tartrate 100 mg 01/02/19 10:00 01/02/19 09:48 Lopressor 100 Mg Tablet PO 02/01/19 09:59 Not Given Q12 JUAQUIN Nitroglycerin tab 01/02/19 09:47 Nitrostat 0.4 Mg (1/150 Gr) Tabs 25/Bottle SL 02/01/19 09:46 Q5MP PRN FOR CHEST PAIN HOME MEDICATIONS: Labs- All tests 24 hr 01/02/19 01/02/19 01/02/19 03:03 03:03 03:03 WBC 7.1 RBC 4.00 Hgb 12.4 Hct 36.1 MCV 90 MCH 31.0 MCHC 34.3 RDW 14.6 H Plt Count 286 Sodium Potassium Chloride Carbon Dioxide Anion Gap BUN Creatinine Est GFR ( Amer) Est GFR (Non-Af Amer) Glucose Calcium Magnesium Creatine Kinase 78 CK-MB (CK-2) 0.29 Troponin I < 0.012 Triglycerides Cholesterol LDL Cholesterol Direct VLDL Cholesterol HDL Cholesterol TSH Free T4 Free T3 pg/mL 01/02/19 01/02/19 01/02/19 03:03 03:03 09:23 WBC RBC Hgb Hct MCV MCH MCHC RDW Plt Count Sodium 139.9 Potassium 3.8 Chloride 105 Carbon Dioxide 27 Anion Gap 8 BUN 18 Creatinine 1.57 H Est GFR ( Amer) 42 L Est GFR (Non-Af Amer) 34 L Glucose 113 H Calcium 9.0 Magnesium 2.5 H Creatine Kinase 77 CK-MB (CK-2) Troponin I Triglycerides 86 Cholesterol 105.25 LDL Cholesterol Direct 72 VLDL Cholesterol 17.0 HDL Cholesterol 29 L TSH 4.20 Free T4 1.30 Free T3 pg/mL 3.64 01/02/19 01/02/19 01/02/19 09:23 10:03 15:24 WBC RBC Hgb Hct MCV MCH MCHC RDW Plt Count Sodium Potassium Chloride Carbon Dioxide Anion Gap BUN Creatinine Est GFR ( Amer) Est GFR (Non-Af Amer) Glucose Calcium Magnesium Creatine Kinase 72 CK-MB (CK-2) 0.26 0.30 Troponin I < 0.012 < 0.012 Triglycerides Cholesterol LDL Cholesterol Direct VLDL Cholesterol HDL Cholesterol TSH Free T4 Free T3 pg/mL 01/02/19 15:24 WBC RBC Hgb Hct MCV MCH MCHC RDW Plt Count Sodium Potassium Chloride Carbon Dioxide Anion Gap BUN Creatinine Est GFR ( Amer) Est GFR (Non-Af Amer) Glucose Calcium Magnesium Creatine Kinase CK-MB (CK-2) 0.28 Troponin I < 0.012 Triglycerides Cholesterol LDL Cholesterol Direct VLDL Cholesterol HDL Cholesterol TSH Free T4 Free T3 pg/mL Chest X-Ray 01/01/19 13:43 IMPRESSION: 1. Linear subsegmental atelectasis or scar in the left mid-lower lung zones. No acute pulmonary consolidation. Head CT 01/01/19 13:46 IMPRESSION: No acute abnormality in brain. EVIDENCE OF ACUTE STROKE: NO. Esophagus X-Ray 01/02/19 00:00 IMPRESSION: Small hiatal hernia. Minimal gastroesophageal reflux. Tertiary contractions of the esophagus. Acetaminophen [Tylenol Extra Strength 500 mg Tablet] 1,000 mg PO Q6HP PRN 01/01/19 Amitriptyline HCl [Elavil 50 mg Tablet] 100 mg PO QHS 01/01/19 Aspirin [Ecotrin 81 mg EC Tablet] 81 mg PO DAILY 01/01/19 Atorvastatin Calcium [Lipitor 80 mg Tablet] 80 mg PO QHS 01/01/19 Cholecalciferol (Vitamin D3) [Vitamin D3 1000 Unit Tablet] 1,000 unit PO DAILY 01/01/19 Hydrochlorothiazide [Hydrodiuril 25 mg Tablet] 12.5 mg PO DAILY 01/01/19 Lisinopril [Prinivil 40 mg Tablet] 40 mg PO DAILY 01/01/19 Metoprolol Tartrate [Lopressor 100 mg Tablet] 100 mg PO Q12 01/01/19 Nitroglycerin [Nitrostat 0.4 mg (1/150 Gr) Tabs 25/Bottle] 0.4 mg SL Q5MP PRN 01/01/19 Ranitidine HCl [Zantac 150 mg Tablet] 150 mg PO BID 01/01/19 Sertraline HCl [Zoloft 50 mg Tablet] 75 mg PO DAILY 01/01/19 EKG: Sinus rhythm nonspecific T changes inferior leads. IMPRESSION/RECOMMENDATION: 1 chest pain most likely noncardiac. This may be related to tertiary contractions of the esophagus. CO has been ruled out. Would recommend starting the patient on amlodipine initially at 2.5 mg x1 dose, and subsequently increased to 5 mg p.o. twice daily. Continue beta-alison for now. Continue aspirin. 2. Coronary artery disease. History of non-ST elevation CO. History of drug- eluting stent to the right coronary artery in 2015. Will add amlodipine. And once this is been started, the patient is chest pain-free, then would recommend discharge the patient and schedule the patient for outpatient IV Lexiscan Cardiolite, and an echocardiogram. 3. Abdominal pain:? Etiology 4. Hypertension: Blood pressure seems to be well-controlled continue current blood pressure medications. 5. Hyperlipidemia: Continue statin 6. Tobacco abuse disorder: Tobacco cessation counseling given. Patient spent 3 minutes on this. Ill effects of tobacco have been discussed with the patient. 7. History of gastrectomy: Patient states it secondary to a growth. Details not available. Patient may benefit from outpatient gastroenterology consultation. 8. GERD: Continue proton pump inhibitors note patient also has a small hiatal hernia. Medications reviewed. Medications adjusted. New medications added. X-ray findings EKG and lab findings were discussed with the patient. Management plan was discussed with attending physician on the case. Medical decision making is of high complexity. 60 minutes spent on this patient more than 50% of time spent in direct patient care. We will follow with you. 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
[2019-01-02 23:32] LABS: TROPONIN I < 0.012 ng/mL
[2019-01-03 01:27] LABS: APPEARANCE,URINE SLIGHTLY-CLOUDY; BILIRUBIN,URINE NEGATIVE (NEGATIVE); COLOR,URINE YELLOW; GLUCOSE, URINE NEGATIVE (NEGATIVE); KETONES,URINE NEGATIVE (NEGATIVE); LEUKOCYTE ESTERASE,URINE MODERATE (NEGATIVE); NITRITE,URINE NEGATIVE (NEGATIVE); PROTEIN,URINE NEGATIVE (NEGATIVE); URINE SPECIFIC GRAVITY 1.018; UROBILINOGEN,URINE NEGATIVE mg/dL (<2.0)
[2019-01-03 01:42] LABS: URINE AMPHETAMINES SCREEN NEGATIVE; URINE BARBITURATES SCREEN NEGATIVE; URINE BENZODIAZEPINES SCREEN NEGATIVE; URINE COCAINE SCREEN NEGATIVE; URINE MARIJUANA (THC) SCREEN NEGATIVE; URINE METHADONE SCREEN NEGATIVE; URINE PHENCYCLIDINE SCREEN NEGATIVE
[2019-01-03 03:34] LABS: ABSOLUTE EOSINOPHILS # (AUTO) 0.1 10^3/uL (0.0-0.6); ABSOLUTE MONOCYTES (AUTO) 0.5 10^3/uL (0.1-1.4); ABSOLUTE NEUT (AUTO) 3.8 10^3/uL (1.7-8.2); BASOPHILS % (AUTO) 0.7 % (0-2); EOSINOPHILS % (AUTO) 1.5 % (0-6); HEMOGLOBIN 12.2 g/dL (12.0-15.5); LYMPHOCYTES % (AUTO) 39.7 % (13-45); MEAN CORPUSCULAR HEMOGLOBIN 30.4 pg (27.0-33.4); MEAN CORPUSCULAR VOLUME 89 fl (80-97); MONOCYTES % (AUTO) 7.1 % (3-13); PLATELET COUNT 269 10^3/uL (150-450); RED BLOOD COUNT 4.03 10^6/uL (3.72-5.28); RED CELL DISTRIBUTION WIDTH 14.2 % (11.5-14.0); TOTAL CELLS COUNTED % (AUTO) 100 %; WHITE BLOOD COUNT 7.5 10^3/uL (4.0-10.5)
[2019-01-03 03:53] LABS: ALANINE AMINOTRANSFERASE 26 U/L (9-52); ALBUMIN 3.4 g/dL (3.5-5.0); ALKALINE PHOSPHATASE 114 U/L (38-126); ANION GAP 8 (5-19); ASPARTATE AMINO TRANSFERASE 21 U/L (14-36); BILIRUBIN,DIRECT 0.2 mg/dL (0.0-0.4); BILIRUBIN,TOTAL 0.4 mg/dL (0.2-1.3); BLOOD UREA NITROGEN 15 mg/dL (7-20); CALCIUM 8.6 mg/dL (8.4-10.2); CARBON DIOXIDE 26 mmol/L (22-30); CHLORIDE 104 mmol/L (98-107); GLUCOSE 107 mg/dL (75-110); POTASSIUM 3.8 mmol/L (3.6-5.0); SODIUM 138.3 mmol/L (137-145); TOTAL PROTEIN 6.2 g/dL (6.3-8.2)
[2019-01-03 04:08] LABS: TROPONIN I < 0.012 ng/mL
[2019-01-03] MEDS: MORPHINE SULFATE 10 MG/ML INJ IV PRN (06:11)
[2019-01-03] MEDS: ONDANSETRON HCL INJ/PF 4 MG/2 ML SDV IV PRN (06:11)
[2019-01-03] MEDS ORDERED: METOPROLOL TARTRATE 100 MG TABLET PO SCH (10:00)
[2019-01-03] MEDS ORDERED: HYDROCHLOROTHIAZIDE 12.5 MG TABLET PO SCH (10:00)
[2019-01-03] MEDS ORDERED: AMLODIPINE BESYLATE 2.5 MG TABLET PO SCH ×2 (10:00)
[2019-01-03] MEDS: SERTRALINE HCL 50 MG TABLET PO SCH (10:16)
[2019-01-03] MEDS: CHOLECALCIFEROL (D3) 1,000 UNIT TABLET PO SCH (10:16)
[2019-01-03] MEDS: FAMOTIDINE 20 MG TABLET PO SCH (10:17)
[2019-01-03] MEDS: ASPIRIN 81 MG TABLET, ENT COATED PO SCH (10:18)
[2019-01-03] MEDS: DOCUSATE SODIUM 100 MG CAPSULE PO SCH (10:18)
[2019-01-03] MEDS: FONDAPARINUX SODIUM INJ 2.5 MG/0.5 ML DISP.SYRIN SUBCUT SCH (10:18)
[2019-01-03 11:12] VITALS: BP 101/52
--- NOTE | 2019-01-03 11:31 | PDOC DISCHARGE SUMMARY ---
General - Admit/Disc Date/PCP Admission Date/Primary Care Provider: 01/02/19 09:[facility] Discharge Date: 01/03/19 - Discharge Diagnosis (1) CAD (coronary artery disease), [place] coronary artery Is this a current diagnosis for this admission?: Yes Summary: Patient will be evaluated utilizing serial cardiac enzymes and EKG evaluations as well as obtaining a cardiac consultation with Dr. Portillo. She will be continued on her current cardiac medications and her acute chest pain will be treated with morphine 2-4 mg IV every 2 hours as needed for chest pain. 01/02/2019-patient came in with chest pain she had a history of coronary artery disease status post stent placement in 2015. Cardiac enzymes are negative EKG was negative cardiology consultation was done with Dr. Portillo. Recent is on IV morphine every 2 hours as needed for chest pains. Plan is to continue the present management. 01/03/2019-patient has history of coronary artery disease status post stent placement in 2015. During this hospital stay cardiac enzymes, EKGs are negative. Cardiology consult with Dr. Portillo was done he is impression is pain is noncardiac in origin. May be most likely musculoskeletal. He planning to see her in the office next week and arrange for outpatient stress test. He recommended to start the patient on amlodipine 2.5 mg p.o. twice daily, and continue metoprolol 100 mg p.o. twice daily. Plan to continue her aspirin and cholesterol also. The patient is pain-free plan is to arrange for the outpatient stress test. (2) HTN (hypertension) Is this a current diagnosis for this admission?: Yes Summary: Patient blood pressure just now is 99/52. We are going to check a manual blood pressure. Plan to hold her blood pressure medications. Creatinine is also jumped from 0.97-1.57 started on IV fluids normal saline 50 cc/h. 01/03/2019-patient blood pressure today he is 115/78. And creatinine was improved 2.96. Hypotension is resolved. Patient is advised to continue amlodipine 2.5 mg p.o. twice daily and metoprolol 100 mg p.o. every 12 hours at home. (3) HLD (hyperlipidemia) Is this a current diagnosis for this admission?: Yes Summary: 01/02/2019-patient has history of hyperlipidemia, presently on atorvastatin 80 mg p.o. nightly. Patient's total cholesterol is 105 and LDL is 72. 01/03/2019 patient history of hyperlipidemia on atorvastatin 80 mg p.o. nightly plan is advised her to continue the medication at home. (4) Obesity (BMI 30-39.9) Is this a current diagnosis for this admission?: Yes Summary: 01/03/2019-patient's BMI is more than 35 diet exercise weight loss and lifestyle modifications are discussed with the patient. Dietary consult was done during the hospital stay. (5) Acute kidney failure Is this a current diagnosis for this admission?: Yes Summary: 01/02/2019-patient's admission creatinine is 0.97 and today it is 1.57 acute kidney injury most likely prerenal. Started on normal saline at 50 cc/h plan to recheck her labs tomorrow. 01/03/2019-patient creatinine is 1.57 yesterday started on IV fluids at 50 cc/h creatinine is back to 2.96 acute kidney injury most likely prerenal is resolved. - Additional Information Resuscitation Status: Full Code Discharge Diet: Cardiac Discharge Activity: Activity As Tolerated Prescriptions: Amlodipine Besylate [Norvasc 2.5 mg Tablet] 2.5 mg PO Q12 #60 tablet Nitroglycerin [Nitrostat 0.4 mg (1/150 Gr) Tabs 25/Bottle] 1 tab SL Q5MP PRN #30 bottle PRN Reason: Home Medications: Amitriptyline HCl [Elavil 50 mg Tablet] 100 mg PO QHS 01/01/19 Aspirin [Ecotrin 81 mg EC Tablet] 81 mg PO DAILY 01/01/19 Atorvastatin Calcium [Lipitor 80 mg Tablet] 80 mg PO QHS 01/01/19 Cholecalciferol (Vitamin D3) [Vitamin D3 1000 Unit Tablet] 1,000 unit PO DAILY 01/01/19 Hydrochlorothiazide [Hydrodiuril 25 mg Tablet] 12.5 mg PO DAILY 01/01/19 Lisinopril [Prinivil 40 mg Tablet] 40 mg PO DAILY 01/01/19 Metoprolol Tartrate [Lopressor 100 mg Tablet] 100 mg PO Q12 01/01/19 Nitroglycerin [Nitrostat 0.4 mg (1/150 Gr) Tabs 25/Bottle] 0.4 mg SL Q5MP PRN 01/01/19 Ranitidine HCl [Zantac 150 mg Tablet] 150 mg PO BID 01/01/19 Sertraline HCl [Zoloft 50 mg Tablet] 75 mg PO DAILY 01/01/19 Amlodipine Besylate [Norvasc 2.5 mg Tablet] 2.5 mg PO Q12 #60 tablet 01/03/19 Nitroglycerin [Nitrostat 0.4 mg (1/150 Gr) Tabs 25/Bottle] 1 tab SL Q5MP PRN #30 bottle 01/03/19 History of Present Illness History of Present Illness: CLARISSA PARISI is a 53 year old female 53 year old female who presented to the emergency room with a 3-day history of a change in her chronic chest pain. Patient states that 3 days prior to her admission she developed a sudden onset of a "chest pain just like I had when I had a heart attack 3 years ago". The pain is described as a constant, continuous, unwavering, moderately severe deep seated, pulling or tearing se nsation, occurring in the left upper chest without radiation. She also notes that for the last 2 days the chest pain has been accompanied by a right frontotemporal headache which she describes as a constant, moderately severe, sharp pain also without radiation. She also notes that she had a similar headache only one time before and that was when she had her heart attack. She she admits that her headache and chest pain were accompanied by nausea, mild lightheadedness and mild confusion. She has been unable to identify any aggravating or ameliorating factors for her chest pain or headache. In the emergency room she was found to have negative cardiac enzymes and an EKG that showed no acute changes suggestive of myocardial ischemia or infarction. Because of her cardiac history she was admitted for further evaluation and treatment to include a cardiology consultation with Dr. Portillo. Physical Exam Vital Signs: Temp Pulse Resp BP Pulse Ox 97.3 F 106 H 16 101/52 L 98 01/03/19 11:09 01/03/19 11:09 01/03/19 11:09 01/03/19 11:09 01/03/19 11:09 Intake & Output 01/02/19 01/03/19 01/04/19 06:59 06:59 06:59 Intake Total 469 Output Total 750 Balance -281 Weight 94.2 kg 94.2 kg General appearance: PRESENT: no acute distress Head exam: PRESENT: atraumatic Eye exam: PRESENT: PERRLA Mouth exam: PRESENT: moist, tongue midline Neck exam: ABSENT: carotid bruit, JVD, lymphadenopathy, thyromegaly Respiratory exam: PRESENT: clear to auscultation wyatt. ABSENT: rales, rhonchi, wheezes Cardiovascular exam: PRESENT: RRR. ABSENT: diastolic murmur, rubs, systolic murmur GI/Abdominal exam: PRESENT: normal bowel sounds, soft. ABSENT: distended, guarding, mass, organolmegaly, rebound, tenderness Neurological exam: PRESENT: alert, awake, oriented to person, oriented to place, oriented to time, oriented to situation, CN II-XII grossly intact. ABSENT: motor sensory deficit Psychiatric exam: PRESENT: appropriate affect, normal mood. ABSENT: homicidal ideation, suicidal ideation Results Laboratory Results: 01/03/19 03:25 01/03/19 03:25 01/02/19 01/03/19 01/03/19 23:57 03:25 03:25 WBC 7.5 RBC 4.03 Hgb 12.2 Hct 36.0 MCV 89 MCH 30.4 MCHC 34.0 RDW 14.2 H Plt Count 269 Seg Neutrophils % 51.0 Lymphocytes % 39.7 Monocytes % 7.1 Eosinophils % 1.5 Basophils % 0.7 Absolute Neutrophils 3.8 Absolute Lymphocytes 3.0 Absolute Monocytes 0.5 Absolute Eosinophils 0.1 Absolute Basophils 0.0 Sodium 138.3 Potassium 3.8 Chloride 104 Carbon Dioxide 26 Anion Gap 8 BUN 15 Creatinine 0.96 Est GFR ( Amer) > 60 Est GFR (Non-Af Amer) > 60 Glucose 107 Calcium 8.6 Magnesium 2.2 Total Bilirubin 0.4 AST 21 ALT 26 Alkaline Phosphatase 114 Total Protein 6.2 L Albumin 3.4 L Urine Color YELLOW Urine Appearance SLIGHTLY-CLOUDY Urine pH 5.0 Ur Specific [place] 1.018 Urine Protein NEGATIVE Urine Glucose (UA) NEGATIVE Urine Ketones NEGATIVE Urine Blood SMALL H Urine Nitrite NEGATIVE Ur Leukocyte Esterase MODERATE H Urine WBC (Auto) 20 Urine RBC (Auto) 2 01/01/19 01/01/19 01/01/19 15:00 15:00 18:03 Creatine Kinase 97 CK-MB (CK-2) 0.36 Troponin I < 0.012 < 0.012 01/01/19 01/01/19 01/02/19 21:00 21:00 03:03 Creatine Kinase 82 78 CK-MB (CK-2) 0.29 Troponin I < 0.012 01/02/19 01/02/19 01/02/19 03:03 09:23 09:23 Creatine Kinase 77 CK-MB (CK-2) 0.29 0.26 Troponin I < 0.012 < 0.012 01/02/19 01/02/19 01/02/19 15:24 15:24 22:03 Creatine Kinase 72 74 CK-MB (CK-2) 0.28 Troponin I < 0.012 01/02/19 01/03/19 01/03/19 22:03 03:25 03:25 Creatine Kinase 70 CK-MB (CK-2) 0.30 0.30 Troponin I < 0.012 < 0.012 Impressions: Chest X-Ray 01/01/19 13:43 IMPRESSION: 1. Linear subsegmental atelectasis or scar in the left mid-lower lung zones. No acute pulmonary consolidation. Head CT 01/01/19 13:46 IMPRESSION: No acute abnormality in brain. EVIDENCE OF ACUTE STROKE: NO. Esophagus X-Ray 01/02/19 00:00 IMPRESSION: Small hiatal hernia. Minimal gastroesophageal reflux. Tertiary contractions of the esophagus. Qualifiers - * PATIENT BEING DISCHARGED WITH ANY OF THE FOLLOWING DIAGNOSIS: No VTE patient discharged on overlapping Therapy?: No
== END 2019-01-03 11:52 | disposition home or self-care (01) | DRG 313 ==
LOC: ER 12:17 → EH 19:35 → 4N 21:48 → OBSVTOIN 01-02 09:50
PROVIDERS: ADMIT Emergency Medicine; ATTEND Emergency Medicine
DX: R07.89 Other chest pain (principal); N17.9 Acute kidney failure, unspecified; E66.01 Morbid (severe) obesity due to excess calories; I25.10 Atherosclerotic heart disease of native coronary artery without angina pectoris; I10 Essential (primary) hypertension; E78.5 Hyperlipidemia, unspecified; R10.9 Unspecified abdominal pain; G89.29 Other chronic pain; K21.9 Gastro-esophageal reflux disease without esophagitis; F17.200 Nicotine dependence, unspecified, uncomplicated; R51 Headache; K58.9 Irritable bowel syndrome, unspecified; Z95.5 Presence of coronary angioplasty implant and graft; Z23 Encounter for immunization; I25.2 Old myocardial infarction; Z90.3 Acquired absence of stomach [part of]; Z82.49 Family history of ischemic heart disease and other diseases of the circulatory system; Z68.39 Body mass index [BMI] 39.0-39.9, adult; Z79.82 Long term (current) use of aspirin; Z71.6 Tobacco abuse counseling
CPT/HCPCS: 36415; 70450; 71046; 74220; 80048; 80053; 80061; 80307; 81001; 82550; 82553; 83735; 84439; 84443; 84481; 84484; 85025; 85027; 90471; 90686; 93005; 93010; 96374; 96375; 99285; G0008; J1200; J1652; J2270; J2405; J2765; J3490

== ENCOUNTER → 2019-07-25 | Outpatient (CLI) | payer OTHER ==
--- NOTE | 2019-07-25 16:24 | RADIOLOGY REPORT (SQ) ---
EXAM DESCRIPTION: NM HIDA SCAN WITH CCK COMPLETED DATE/TIME: 07/25/2019 3:09 pm REASON FOR STUDY: R10.13 EPIGASTRIC PAIN R10.13 EPIGASTRIC PAIN COMPARISON: None. RADIONUCLIDE AND DOSE: DOSAGE RADIONUCLIDE: 5.4 millicuries Tc99m Mebrofenin. DOSAGE CCK: 1.9 micrograms. DOSAGE MORPHINE: None. The route of agent administration: Intravenous TECHNIQUE: A limited ultrasound of the right upper quadrant was performed prior to the administratio n of the radiotracer to exclude cholelithiasis. The sonographic images demonstrated that the gallbla dder wall is normal in thickness and it measures up to 2.1 mm. There is no cholelithiasis, sludge or pericholecystic fluid. Serial images of the right upper quadrant were acquired up to 60 minutes following injection of the r adionuclide. CCK injected after the gallbladder was visualized. LIMITATIONS: None. FINDINGS: LIVER: There is prompt uptake and excretion of the radiotracer by the hepatic parenchyma. INTRAHEPATIC BILE DUCTS: Normal. COMMON BILE DUCT: Normal without dilatation. GALLBLADDER: There is activity within the gallbladder 20 minutes post injection. The calculated eje ction fraction is 15% (normal range is greater than 35%). PHYSICAL RESPONSE: The patient complain that nausea after the injection of CCK; no pain was reproduc ed. OTHER: No other finding. IMPRESSION: Low ejection fracture of 15%. These findings are consistent with biliary dyskinesis. T here is no common bile duct obstruction. TECHNICAL DOCUMENTATION: JOB ID: [id number] [employer]- All Rights Reserved Reading location - IP/workstation name: [email or web address]
== END ==
LOC: RAD 12:44
PROVIDERS: ATTEND Internal Medicine Gastroenterology
DX: K82.8 Other specified diseases of gallbladder (principal); R10.13 Epigastric pain
CPT/HCPCS: 78227; J2805; A9537; Q9969